=== PATIENT | female | born 1945 | race Caucasian/White ===

== ENCOUNTER 2021-03-05 11:59 | Outpatient (CLI) | payer OTHER | END 2021-03-05 12:14 | disposition home or self-care (01) | LOC: RAD 11:59 → MAMO-SONO 12:15 | PROVIDERS: ATTEND Physical Medicine & Rehabilitation Hospice and Palliative Medicine | DX: M25.512 Pain in left shoulder (principal); M75.42 Impingement syndrome of left shoulder ==